=== PATIENT | female | born 1940 | race Caucasian/White ===

== ENCOUNTER 2020-09-01 11:29 | Outpatient (CLI) | payer MEDICARE, SELFPAY | END 2020-09-01 11:30 | disposition home or self-care (01) | LOC: ANHCOVIDVC 11:29 | PROVIDERS: PCP Internal Medicine; Visit Provider Internal Medicine | DX: Z23 Encounter for immunization (principal) | CPT/HCPCS: 0001A; 91300 ==

== ENCOUNTER 2020-09-22 11:09 | Outpatient (CLI) | payer MEDICARE, SELFPAY | END 2020-09-22 11:10 | disposition home or self-care (01) | LOC: ANHCOVIDVC 11:09 | PROVIDERS: PCP Internal Medicine | DX: Z23 Encounter for immunization (principal) | CPT/HCPCS: 0002A; 91300 ==

== ENCOUNTER 2021-01-25 18:26 | Emergency (ER) | payer MEDICARE, SELFPAY ==
[2021-01-25] VITALS (16 sets, daily range): BP systolic 149–206; BP diastolic 56–87; PULSE 53–78; RESP 15–21; TEMP 36.4–36.8; O2SAT 96–100
--- NOTE | ~2021-01-25 | XR_ITS ---
EXAMINATION: XR chest 2V DATE: 01/25/2021 22:03 INDICATION: Hypertensive crisis, history of COPD TECHNIQUE: AP and lateral views of the chest are obtained. COMPARISON: 09/12/2018 FINDINGS: The lungs are hyperinflated but free of acute opacities. There is no pleural effusion or pn eumothorax. The cardiomediastinal silhouette is normal. There is mild thoracic spondylosis. Calcified pulmonary nodules are consistent with old granulomatous disease. IMPRESSION: 1. No acute cardiopulmonary abnormality. Reviewed, dictated and finalized at location A.
--- NOTE | ~2021-01-25 | CT_ITS ---
EXAMINATION: CT brain wo con INDICATION: Hypertension and headache COMPARISON: 01/13/2019 TECHNIQUE: Standard unenhanced head CT. The dose-length product (DLP) was 605.33 mGy-cm. The mA was a djusted according to patient size. Iterative reconstruction technique was employed. FINDINGS: There is no acute intraparenchymal hemorrhage. No evidence of mass lesion. No evidence of a cute infarction. There is mild periventricular and subcortical hypodensity probably related to small vessel ischemic disease. Calcified coronary plexus cysts are unchanged. There is mild prominence of t he sulci and ventricles related to cerebral atrophy. Intracranial calcified cerebral atherosclerosis is noted. There are no extra-axial collections. There is no mass effect or midline shift. Changes in the left globe are likely from ocular lens surgery. There is mild mucosal thickening of the paranasal sinuses. IMPRESSION: 1. No acute intracranial abnormality. 2. Age related findings. Reviewed, dictated and finalized at location A.
[2021-01-25 20:25] LABS: Basophils Absolute Auto 0.1 K/mm3 (0.0-0.1); Basophils Percent Auto 1.1 % (0.2-1.2); Eosinophils Absolute Auto 0.3 K/mm3 (0-0.3); Eosinophils Percent Auto 3.6 % (0-4.4); Hematocrit 44.6 % (37.0-47.0); Immature Granulocyte Absolute 0.04 K/mm3 (0.00-0.031); Immature Granulocyte Percent A 0.5 % (0-0.5); Lymphocytes Absolute Auto 2.32 K/mm3 (0.9-3.2); Lymphocytes Percent Auto 26.5 % (18.3-44.2); Mean Corpuscular HGB Conc 33.6 g/dl (32-36); Mean Corpuscular Volume 95.1 fl (80-100); Mean Platelet Volume 9.6 fl (7.4-10.4); Monocytes Absolute Auto 1.2 K/mm3 (0.1-0.6); Monocytes Percent Auto 13.3 % (2.6-8.5); Neutrophils Absolute Auto 4.8 K/mm3 (1.3-6.7); Platelet Count Result 146 k/mm3 (150-375); Red Blood Count 4.69 M/mm3 (4.2-5.4); Red Cell Distribution Width 11.9 % (11.5-14.5); White Blood Count 8.8 K/mm3 (4.5-10.0)
[2021-01-25 20:33] LABS: Anion Gap 6 mmol/L (8-16); Blood Urea Nitrogen 17 mg/dL (7-17); Calcium 9.7 mg/dL (8.4-10.2); Carbon Dioxide 30 mmol/L (22-30); Chloride 91 mmol/L (98-107); Estimated Glomerular Filt Rate > 60; Glucose 95 mg/dL (65-110); Potassium 4.1 mmol/L (3.4-5.0); Sodium 127 mmol/L (137-145)
--- NOTE | 2021-01-25 21:39 | ED.RECABL ---
HPI - Recheck/Abnormal Lab/Rx General Chief Complaint: Recheck/Abnormal Lab/Rx Stated Complaint: high BP/HEADACHE Time Seen by Provider: 01/25/21 21:39 Source: patient and family Mode of arrival: ambulatory Limitations: no limitations History of Present Illness HPI narrative: Patient is an 80-year-old female with a history of hypertension, COPD, hyperlipidemia, hypothyroidism who presents for evaluation of headache pain in the setting of elevated blood pressure from her pulmonology appointment. Patient states that she has had a dull, aching headache over both eyes over the past 4 days. Headache pain initially began on Monday. No thunderclap sensation. Headache has been constant in nature. She denies neck pain. Patient reports throbbing pain behind her eyes but denies vision changes, nausea or vomiting. No difficulty with speech, difficulty with ambulation, focal weakness or numbness. No neck pain or fever. Patient has a history of migraine headaches, states that this is atypical from her migraines. No aura. Patient has taken Motrin without improvement in her symptoms. She denies any current chest pain or shortness of breath. Patient notes that her blood pressure was elevated at her pulmonology appointment with blood pressure in the 180s systolics, thus given the headache they referred her to the ER for assessment. Of note, blood pressure in room at the time of my assessment is 160/66. Related Data Home Medications Medication Instructions Recorded Confirmed aspirin PO 01/25/21 Allergies Allergy/AdvReac Type Severity Reaction Status Date / Time meperidine Allergy Unknown Unknown Verified 01/25/21 21:18 prednisone Allergy Unknown Unknown Verified 01/25/21 21:18 Review of Systems Review of Systems: Narrative: CONSTITUTIONAL: Denies fever, chills, or sweats. EYES: Denies visual changes, redness, or discharge. ENT: Denies rhinorrhea, congestion, sore throat, or otalgia. CARDIOVASCULAR: Denies chest pain, palpitations, or edema. RESPIRATORY: Denies cough or dyspnea. GASTROINTESTINAL: Denies abdominal pain, nausea, vomiting, or diarrhea. GENITOURINARY: Denies dysuria or hematuria. SKIN: Denies rash or itching. MUSCULOSKELETAL: Denies back pain, joint pain, or myalgia. NEUROLOGIC: Reports headache without numbness, or weakness. [facility] Past Medical History Medical History (Updated 01/26/21 @ 00:33 by Aurora Jara MD) Abnormal EKG Anxiety about health Chest wall pain Chronic asthmatic bronchitis with acute exacerbation COPD (chronic obstructive pulmonary disease) Inguinal bulge Solitary lung nodule Underweight Unilateral recurrent inguinal hernia without obstruction or gangrene Weight loss Surgical History Surgical History History of abdominal aortic aneurysm (AAA) repair History of appendectomy History of inguinal herniorrhaphy History of left mastectomy History of tonsillectomy Family History Family History Sibling Family history of thyroid disease Hypertension Patient's sister is in good health Father Cerebrovascular accident Mother Acute myocardial infarction, Onset Age: 97 Family history of coronary artery disease, Onset Age: 82 Cerebrovascular accident Other Carcinoma of colon Family history of cardiovascular disease Social History Social History Smoking status: Former smoker Second hand tobacco smoke exposure: No Smoking end date: 07/03/15 Alcohol intake: never Gender identity (if verbalized by the patient): Female Exam Narrative: Exam Narrative: GENERAL: Awake, alert, conversant, thin HEAD: Normocephalic, atraumatic. EYES: 2+ PERRLA and EOMI. ENT: Nares clear, no rhinorrhea or epistaxis. Mucous membranes moist. NECK: Supple. CHEST: No respiratory distress, breathing even and non labored HEART: Regular
--- NOTE | 2021-01-25 21:40 | ECG_ITS ---
Measurements Intervals [place] Rate: 54 P: 81 KS: 152 QRS: -25 QRSD: 98 T: 78 QT: 406 QTc: 385 Interpretive Statements SINUS BRADYCARDIA ANTEROSEPTAL INFARCT, AGE INDETERMINATE ABNORMAL ECG Electronically Signed On 01-26-2021 6:31:41 CDT by Ron Raymond D.O.
[2021-01-25] MEDS: ACETAMINOPHEN 500 MG TABLET 1000 MG PO (21:47)
--- NOTE | 2021-01-25 21:49 | PC.NURSE ---
Pt off floor to xray and CT scan
[2021-01-25 22:19] LABS: Add Urine Microscopic? YES; Appearance Urine Clear (Clear); Bacteria Urine Trace /hpf; Bilirubin Urine Negative (Negative); Blood Urine 1+ (Negative); Color Urine Yellow (Yellow); Glucose Urine UA Negative (Negative); Ketones Urine Negative (Negative); Leukocyte Esterase Ur Trace LEU/UL (Negative); Mucus Urine Rare /lpf; Nitrate Urine Negative (Negative); Protein Urine Negative (Negative); RBC Urine 0-2 /hpf (0-2); Specific Grav Ur 1.008 (1.001-1.035); Squamous Epithelial Cell Urine Rare /hpf (Few); Urobilinogen Urine Negative mg/dL (<2.0); WBC Urine 0-3 /hpf
[2021-01-25 23:42] LABS: Troponin I < 0.012 ng/mL (0.000-0.034)
[2021-01-25] MEDS: KETOROLAC 15 MG/ML VIAL (*BKC) IV PUSH (23:45)
[2021-01-25] MEDS: MAGNESIUM SULF 2 GM/WATER 50ML 2 GM/50 ML BAG IVPB (23:45)
[2021-01-25] MEDS: SODIUM CHLORIDE 0.9% IV 500 ML 999 ML IV CONT (23:46)
[2021-01-25] MEDS: METOCLOPRAMIDE HCL INJ 10 MG/2 ML VIAL 5 MG IV PUSH (23:46)
[2021-01-26] VITALS: BP 139/55; PULSE 64; RESP 12; O2SAT 100
[2021-01-26 01:05] VITALS: BP 147/63; PULSE 65; RESP 20; O2SAT 99
== END 2021-01-26 01:05 | disposition home or self-care (01) ==
PROVIDERS: Emergency Medicine; Emergency Provider Emergency Medicine; PCP Internal Medicine
DX: R51.9 Headache, unspecified (principal); I10 Essential (primary) hypertension; J44.9 Chronic obstructive pulmonary disease, unspecified; E78.5 Hyperlipidemia, unspecified; E03.9 Hypothyroidism, unspecified; Z90.12 Acquired absence of left breast and nipple; Z87.891 Personal history of nicotine dependence; R00.1 Bradycardia, unspecified; R94.31 Abnormal electrocardiogram [ECG] [EKG]
CPT/HCPCS: 36415; 70450; 71046; 80048; 81001; 84484; 85025; 93005; 96365; 96375; 99284; A9270; J1885; J2765; J3475; J7040

== ENCOUNTER 2022-07-05 17:20 | Emergency (ER) | payer MEDICARE, SELFPAY ==
--- NOTE | ~2022-07-05 | CT_ITS ---
EXAMINATION: CT abdomen pelvis wo con DATE: 07/05/2022 20:36 INDICATION: flank pain, hematuria TECHNIQUE: Computed tomography (CT) of the abdomen and pelvis was performed without intravenous contr ast. Automated exposure control and iterative reconstruction technique were employed. The dose-length product was 152.37 mGy-cm. COMPARISON: 02/27/2019. FINDINGS: Exam limited by noncontrast technique, paucity of abdominal fat, and arm positioning. Lower thorax: Coronary artery calcification. Emphysematous change. Calcified left lower lobe granulom a. 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 Liver: Normal. Biliary/Gallbladder: Gallbladder is absent. No bile duct dilation. Pancreas: No mass or duct dilation. Spleen: Normal. Adrenals:No mass. Kidneys: No mass, stone, or hydronephrosis. GI tract: No small or large bowel dilation. Appendix not visualized. The cecum sits low in the deep p kitty. Large burden of stool. Mesentery/Peritoneum: No ascites, mass, or free air. Retroperitoneum: No mass. Bilateral iliac grafts. Pelvis: Partially decompressed urinary bladder. Atrophic versus surgically absent uterus.. Distal ure ters poorly visualized, no new calcifications in the expected pathway of the ureters. 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 Bones: No acute osseous finding. IMPRESSION: Limited examination. 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 No CT evidence of obstructive uropathy. Additional chronic and incidental findings detailed above. Reviewed, dictated and finalized at location K. CATION SPECIALIST IMPRESSION: Limited examination. 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 No CT evidence of obstructive uropa thy. Additional chronic and incidental findings detailed above.
--- NOTE | ~2022-07-05 | XR_ITS ---
EXAMINATION: XR chest 1V portable Exam Date/Time: 07/05/2022 20:15 COSMETIC COUNSELOR HISTORY: MIDSTERNAL chest pain X 2 DAYS, HX COPD Comparison: 01/25/2021. RESULT: Lines, tubes, and devices: None. Lungs and pleura: Biapical pleural scarring with hilar retraction. Emphysematous change. Left lower lobe granuloma. No focal consolidation, pneumothorax, or large effusion. Cardiomediastinal silhouette: Stable. Dilated central pulmonary arteries as can be seen with pulmona ry arterial hypertension. Other: No acute osseous or upper abdominal finding. IMPRESSION: No acute cardiopulmonary process. Reviewed, dictated and finalized at location K. ETIC COUNSELOR
[2022-07-05 17:33] VITALS: BP 143/59; PULSE 73; RESP 16; TEMP 36.4; O2SAT 100
--- NOTE | 2022-07-05 17:37 | ECG_ITS ---
Measurements Intervals [place] Rate: 71 P: 87 OR: 165 QRS: -49 QRSD: 120 T: 111 QT: 377 QTc: 412 Interpretive Statements SINUS RHYTHM INCOMPLETE LEFT BUNDLE BRANCH BLOCK LEFT ANTERIOR FASCICULAR BLOCK LEFT VENTRICULAR HYPERTROPHY WITH ST-T CHANGE ANTEROSEPTAL INFARCT, AGE INDETERMINATE BORDERLINE ST-T WAVE ABNORMALITY- HIGH LATERAL LEADS BASELINE ARTIFACT- I, II, III, AVR, AVL, AVF, V1-V6 ABNORMAL ECG COMPARED TO ECG 01/25/2021 22:31:04 SINUS RHYTHM NOW PRESENT LEFT ANTERIOR FASCICULAR BLOCK NOW PRESENT ST (T WAVE) DEVIATION NOW PRESENT Electronically Signed On 07-07-2022 15:19:36 ELECTRICAL APPLIANCE MECHANIC by Ron Raymond D.O.
[2022-07-05 18:31] LABS: Add Urine Microscopic? YES; Appearance Urine Clear (Clear); Bilirubin Urine Negative (Negative); Blood Urine Trace-Intact (Negative); Color Urine Yellow (Yellow); Glucose Urine UA Negative (Negative); Ketones Urine Negative (Negative); Leukocyte Esterase Ur Trace LEU/UL (Negative); Nitrate Urine Negative (Negative); Protein Urine Negative (Negative); Specific Grav Ur 1.015 (1.001-1.035); Urobilinogen Urine 0.2 mg/dL (<2.0); pH Urine 6.5 (5.0-9.0)
[2022-07-05 18:42] LABS: Bacteria Urine Trace /hpf; Mucus Urine Rare /lpf; Squamous Epithelial Cell Urine Rare /hpf (Few); WBC Urine 0-3 /hpf
[2022-07-05] MEDS: IPRATROPIUM BR 0.02% INH SOLN 0.5 MG/2.5 ML VIAL 1 MG INHALATION (20:36)
[2022-07-05] MEDS: ALBUTEROL SULFATE NEB 2.5 MG/3 ML INH 15 MG INHALATION (20:37)
[2022-07-05 20:40] VITALS: PULSE 73; RESP 20
[2022-07-05 20:42] VITALS: PULSE 78; RESP 20
--- NOTE | 2022-07-06 04:33 | ED.BACK ---
HPI - Back Pain/Injury General Chief Complaint: Back Pain/Injury Stated Complaint: back, abd pain, painful urination Time Seen by Provider: 07/05/22 20:13 History of Present Illness HPI Narrative: 81-year-old female presents with chronic cough and about a week of back pain, she is concerned about a UTI. No fevers or chills, does endorse dysuria, no recent traumas, no focal numbness or weakness. Related Data Home Medications Medication Instructions Recorded Confirmed aspirin 81 mg tablet PO 01/25/21 06/29/21 Allergies Allergy/AdvReac Type Severity Reaction Status Date / Time meperidine Allergy Unknown Unknown Verified 06/29/21 16:23 prednisone Allergy Unknown Unknown Verified 06/29/21 16:23 Review of Systems Review of Systems: CONST: No fever. HEENT: No sore throat C/V: Mild chest tightness with cough RESP: cough GI: No nausea or vomiting : dysuria. M/S: Back pain. SKIN: No rash. NEURO: [No headache or focal numbness or weakness] PSYCH: [No depression] [facility] Past Medical History Medical History Abnormal EKG Anxiety about health Chest wall pain Chronic asthmatic bronchitis with acute exacerbation COPD (chronic obstructive pulmonary disease) Inguinal bulge Solitary lung nodule Underweight Unilateral recurrent inguinal hernia without obstruction or gangrene Weight loss Surgical History Surgical History History of abdominal aortic aneurysm (AAA) repair History of appendectomy History of inguinal herniorrhaphy History of left mastectomy History of tonsillectomy Family History Family History Sibling Family history of thyroid disease Hypertension Patient's sister is in good health Father Cerebrovascular accident Mother Acute myocardial infarction, Onset Age: 97 Family history of coronary artery disease, Onset Age: 82 Cerebrovascular accident Other Carcinoma of colon Family history of cardiovascular disease Social History Social History Smoking status: Former smoker Second hand tobacco smoke exposure: No Smoking end date: 07/03/15 Alcohol intake: never Gender identity (if verbalized by the patient): Female Exam Narrative: EXAMINATION OF ORGAN SYSTEMS/BODY AREAS: Constitutional: Vital signs per nursing GENERAL:[No acute distress, non-toxic appearing.] HEAD: Normal with no signs of head trauma. EYES: EOMI, conjunctiva normal ENT: Hearing grossly intact LUNGS: Wheezing all lung larry HEART: [Regular rate and rhythm] ABD: [Soft], [nontender to palpation] EXT: Normal range of motion SKIN: [No rashes or lesions.] NEURO: [Alert and oriented x 3. No gross focal sensory or strength deficits.] PSYCH: Normal affect Course Vital Signs Vital signs: Vital Signs Temperature 97.6 F 07/05/22 17:33 Pulse Rate 73 07/05/22 17:33 Respiratory Rate 16 07/05/22 17:33 Blood Pressure 143/59 H 07/05/22 17:33 Pulse Oximetry 100 07/05/22 17:33 Temperature 97.6 F 07/05/22 17:33 Pulse Rate 78 07/05/22 20:42 Respiratory Rate 20 07/05/22 20:42 Blood Pressure 143/59 H 07/05/22 17:33 Pulse Oximetry 100 07/05/22 17:33 MDM - Back Pain/Injury MDM Narrative Medical decision making narrative: ED COURSE AND MEDICAL DECISION MAKING: EMR reviewed. 81-year-old female with acute back pain. Normal motor and sensory exam. Patient able to ambulate. No evidence of acute cord compression, osteomyelitis/discitis or cauda equina without saddle anesthesia, urinary retention/incontinence, numbness/tingling in lower extremities, fever, history of IV drug use, cancer or immunosuppression. Doubt AAA or aortic dissection without severe pain/discomfort or any neurovascular deficits. Considered possible kidney stone or pyelonephritis. I suspect likely COPD exacerbation causing
== END 2022-07-05 22:25 | disposition home or self-care (01) ==
PROVIDERS: Emergency Medicine; Emergency Provider Emergency Medicine; PCP Internal Medicine
DX: J44.1 Chronic obstructive pulmonary disease with (acute) exacerbation (principal); M54.9 Dorsalgia, unspecified; R63.6 Underweight; Z68.1 Body mass index [BMI] 19.9 or less, adult; Z90.12 Acquired absence of left breast and nipple; Z87.891 Personal history of nicotine dependence; I44.7 Left bundle-branch block, unspecified; I44.4 Left anterior fascicular block; I51.7 Cardiomegaly; R94.31 Abnormal electrocardiogram [ECG] [EKG]
CPT/HCPCS: 71045; 74176; 81001; 93005; 94640; 99284